=== PATIENT | female | born 1985 | race Caucasian/White ===

== ENCOUNTER 2019-12-22 08:47 | Outpatient (NON) | payer BC, SELFPAY ==
[2019-12-22 23:07] LABS: SARS-CoV-2 RNA PCR Negative
== END 2019-12-22 08:48 ==
PROVIDERS: Visit Provider Physician Assistant
DX: R50.9 Fever, unspecified (principal); Z20.828 Contact with and (suspected) exposure to other viral communicable diseases
CPT/HCPCS: 87635; C9803; U0003

== ENCOUNTER 2020-04-05 10:40 | Outpatient (NON) | payer BC, SELFPAY ==
[2020-04-08 17:04] LABS: SARS-CoV-2 RNA PCR Negative
== END 2020-04-05 10:41 ==
LOC: ANHCOVIDDT 10:41
PROVIDERS: Visit Provider Physician Assistant
DX: R05 Cough (principal); Z20.828 Contact with and (suspected) exposure to other viral communicable diseases
CPT/HCPCS: 87635; C9803; U0003